=== PATIENT | female | born 1950 | race Two or more races ===

== ENCOUNTER 2016-10-24 22:32 | Emergency (ER) | payer SELFPAY ==
[~2016-10-24] VITALS: Ht 152.4 cm; Wt 68.0 kg
[~2016-10-24 22:32] MED LIST: ACET-929 PO; AMIODARONE PO; ASPI-498 PO; CAR3125T PO; DOCU-94 PO; FURO40TA PO; GABA300C8 PO; GLYB5TAB8 PO; METF-312 PO; NITR0.4D10 TD; OMEP20CA5 PO; POTA10TA34 PO
[2016-10-24 22:38] VITALS: BP 141/113
[2016-10-24 23:37] LABS: Basophils # (auto) 0 uL; Basophils % (auto) 0.5 % (0.0-2.0); DEFINITIVE VIEW TRANSMISSION; Eosinophils # (auto) 0 uL; Eosinophils % (auto) 0.6 % (0.0-7.0); Hemoglobin 10.4 g/dL (12.2-16.2); Lymphocytes # (auto) 3.5 uL; Lymphocytes % (auto) 51.4 % (10.0-50.0); Mean Corpuscular Hemoglobin 25.2 pg (28.0-32.0); Mean Corpuscular Hgb Conc. 32.7 g/dL (32.0-36.0); Mean Corpuscular Volume 77.2 fL (80.0-100.0); Mean Platelet Volume 8.7 fL (7.4-10.4); Monocytes # (auto) 0.4 uL; Monocytes % (auto) 5.3 % (0.0-12.0); Neutrophils # (auto) 2.9 uL; Neutrophils % (auto) 42.2 % (37.0-80.0); Platelet Count (auto) 363 10^3/uL (140-450); Red Cell Distribution Width 18.5 % (11.6-16.0); White Blood Cell 6.8 10^3/uL (4.4-10.8)
[2016-10-24 23:53] LABS: Albumin 3.6 g/dL (3.4-5.0); Calcium 8.9 mg/dL (8.5-10.1)
[2016-10-24 23:55] LABS: Bilirubin, Total 0.4 mg/dL (0.2-1.0)
== END 2016-10-25 02:27 | disposition home or self-care (01) ==
LOC: ER 22:34
DX: R07.2 Precordial pain (principal); I10 Essential (primary) hypertension; E11.9 Type 2 diabetes mellitus without complications; Z79.899 Other long term (current) drug therapy
CPT/HCPCS: 36415; 71010; 80053; 84484; 85025; 93005

== ENCOUNTER 2019-07-22 23:10 | Emergency (ER) | payer OTHER ==
[~2019-07-22] VITALS: Ht 165.1 cm; Wt 70.8 kg
[~2019-07-22 23:10] MED LIST changes: +AMIO200T5 PO; -AMIODARONE PO; +FURO1TAB31 PO; -FURO40TA PO; +GABA300C10 PO; -GABA300C8 PO; -METF-312 PO; +METF-370 PO; -NITR0.4D10 TD; +NITR0.4D3 TD; -OMEP20CA5 PO; +OMEP20CA74 PO; -POTA10TA34 PO; +POTA1TAB61 PO
[2019-07-22 23:59] LABS: Basophils # (auto) 0.1 uL; Basophils % (auto) 0.3 % (0.0-2.0); Eosinophils # (auto) 0 uL; Hematocrit 39.3 % (36.0-46.0); Hemoglobin 12.8 g/dL (12.2-16.2); Lymphocytes % (auto) 5.8 % (10.0-50.0); Mean Corpuscular Hemoglobin 29.3 pg (28.0-32.0); Mean Corpuscular Hgb Conc. 32.5 g/dL (32.0-36.0); Mean Corpuscular Volume 90.3 fL (80.0-100.0); Monocytes # (auto) 1.1 uL; Monocytes % (auto) 6.6 % (0.0-12.0); Neutrophils # (auto) 14.4 uL; Neutrophils % (auto) 87.3 % (37.0-80.0); Platelet Count (auto) 262 10^3/uL (140-450); Red Blood Cells 4.36 10^6/uL (4.0-5.20); Red Cell Distribution Width 13.7 % (11.8-14.3); White Blood Cell 16.5 10^3/uL (4.4-10.8)
[2019-07-23 00:18] LABS: Albumin 3.1 g/dL (3.4-5.0); Anion Gap 17 (5-15); Blood Urea Nitrogen 27 mg/dL (7-18); Calcium 9.1 mg/dL (8.5-10.1); Carbon Dioxide 16 mmol/L (21-32); Chloride 91 mmol/L (98-107); Potassium 5.3 mmol/L (3.5-5.1); Sodium 124 mmol/L (136-145)
[2019-07-23 00:20] LABS: Alanine Aminotransferase 13 U/L (13-56); Aspartate Aminotransferase 7 U/L (15-37); Bilirubin, Total 0.6 mg/dL (0.2-1.0); GFR African American 49 mL/min; GFR Non-African American 41 mL/min; Total Protein 7.8 g/dL (6.4-8.2)
[2019-07-23 00:21] LABS: BUN/Creatinine Ratio 19.7
[2019-07-23 00:22] LABS: Glucose 528 mg/dL (74-106)
[2019-07-23 00:27] LABS: Alkaline Phosphatase 145 U/L (45-117)
[2019-07-23] MEDS ORDERED: InsuLIN REG 1unit/0.01ml Soln (100units/ml) IV ONE (00:30)
[2019-07-23] MEDS ORDERED: ONDANSETRON HCL 4 MG/2 ML VIAL IV ONE (00:30)
[2019-07-23] MEDS ORDERED: SODIUM CHLORIDE 0.9% 500 ML IV ONE (00:30)
[2019-07-23 01:29] LABS: Urine Bacteria FEW /hpf (None Seen); Urine Blood Negative /uL (Negative); Urine Hyaline Cast FEW /lpf (0 - 2); Urine Specific Gravity 1.024 (1.001-1.035); Urine WBC 2 /hpf (0 - 5)
[2019-07-23] MEDS ORDERED: SODIUM CHLORIDE 0.9% 1,000 ML IV ONE (02:15)
[2019-07-23] MEDS ORDERED: SODIUM CHL 3% 500 ML IV ONE (04:00)
[2019-07-23] MEDS ORDERED: ACETAMINOPHEN 325 MG TAB PO ONE (04:00)
[2019-07-23] MEDS ORDERED: InsuLIN R (HUMAN) 100 UNITS in SODIUM CHL 0.9% 99 ML IV SCH (05:10)
[2019-07-23] MEDS ORDERED: DEXTROSE (50%) 50ML SYRG IV PRN (05:15)
[2019-07-23] MEDS ORDERED: InsuLIN REG 1unit/0.01ml Soln (100units/ml) ONE (06:20)
[2019-07-23] MEDS: ACCU-CHEK COMFORT CURVE STRIP VI SCH ×5 (06:38→12:13)
[2019-07-23 07:33] LABS: INR 1.01 (0.9-1.15)
[2019-07-23] MEDS ORDERED: ENOXAPARIN SOD 80 MG/0.8ML SYRINGE SC ONE (08:15)
[2019-07-23] MEDS ORDERED: PIPERACILLIN-TAZOB 3.375GM 100 ML IV ONE (08:15)
[2019-07-23 08:29] LABS: Albumin 2.4 g/dL (3.4-5.0); BUN/Creatinine Ratio 27.1; Calcium 8.1 mg/dL (8.5-10.1); Potassium 4.2 mmol/L (3.5-5.1)
[2019-07-23 08:32] LABS: Bilirubin, Total 0.5 mg/dL (0.2-1.0); Total Protein 6.1 g/dL (6.4-8.2)
[2019-07-23 12:15] VITALS: BP 125/54
== END 2019-07-23 12:42 | disposition short-term general hospital (02) ==
LOC: ER 23:17
DX: E11.10 Type 2 diabetes mellitus with ketoacidosis without coma (principal); E87.1 Hypo-osmolality and hyponatremia; E11.22 Type 2 diabetes mellitus with diabetic chronic kidney disease; I12.9 Hypertensive chronic kidney disease with stage 1 through stage 4 chronic kidney disease, or unspecified chronic kidney disease; N18.9 Chronic kidney disease, unspecified; I25.2 Old myocardial infarction; Z90.49 Acquired absence of other specified parts of digestive tract; Z90.89 Acquired absence of other organs; Z95.1 Presence of aortocoronary bypass graft
CPT/HCPCS: 36415; 36600; 71045; 80053; 81001; 82805; 82962; 83605; 83880; 84484; 85025; 85379; 85610; 85730; 87040; 87077; 87186; 87804; 93005; 96361; 96365; 96366; 96367; 96372; 96375; 96376; 99285; J1650; J1815; J2405; J2543; J7030